=== PATIENT | male | born 1955 | race Two or more races ===

== ENCOUNTER 2022-11-21 19:06 | Emergency (ER) | payer OTHER ==
[~2022-11-21] VITALS: Ht 175.3 cm; Wt 83.9 kg
[2022-11-21] MEDS ORDERED: SYNTHROID75 MCG PO (19:09)
[2022-11-21] MEDS ORDERED: NORVASC2.5 M1 PO (19:09)
== END 2022-11-21 20:41 | disposition home or self-care (01) ==
LOC: ER 19:06
DX: R05.9 Cough, unspecified (principal); Z20.822 Contact with and (suspected) exposure to COVID-19

== ENCOUNTER 2023-02-03 00:57 | Emergency (ER) | payer OTHER ==
[~2023-02-03] VITALS: Ht 175.3 cm; Wt 85.3 kg
[~2023-02-03 00:57] MED LIST: NORVASC2.5 M1 PO; SYNTHROID75 MCG PO
[2023-02-03] MEDS ORDERED: LIPITOR20 MG PO (01:11)
== END 2023-02-03 03:16 | disposition home or self-care (01) ==
LOC: ER 00:57
DX: R45.0 Nervousness (principal)